=== PATIENT | male | born 1980 | race Two or more races ===

== ENCOUNTER 2023-09-11 21:40 | Emergency (ER) | payer OTHER ==
[~2023-09-11] VITALS: Ht 167.6 cm; Wt 152.9 kg
[2023-09-11 22:14] VITALS: BP 124/74; TEMP 98.1
[2023-09-11] MEDS ORDERED: IBUP-1955 PO (22:29)
[2023-09-11] MEDS ORDERED: DIPH30CR2 TP (22:29)
[2023-09-11] MEDS ORDERED: ACYC-108 PO (22:29)
[2023-09-11] MEDS ORDERED: IBUPROFEN 400 MG TABLET ONE (22:42)
[2023-09-11] MEDS ORDERED: ACYCLOVIR 200 MG CAPSULE ONE (22:42)
[2023-09-11 22:45] VITALS: O2SAT 99
[2023-09-11] MEDS ORDERED: ACYCLOVIR 200 MG CAPSULE PO ONE (23:00)
[2023-09-11] MEDS ORDERED: IBUPROFEN 400 MG TABLET PO ONE (23:00)
== END 2023-09-11 22:46 | disposition home or self-care (01) ==
LOC: ER 22:16
DX: B02.9 Zoster without complications (principal); E11.9 Type 2 diabetes mellitus without complications; F17.200 Nicotine dependence, unspecified, uncomplicated